=== PATIENT | female | born 1935 | race Caucasian/White ===

== ENCOUNTER 2016-12-09 09:38 | Day surgery (SDC) | payer MEDICARE, OTHER ==
[~2016-12-09] VITALS: Ht 160 cm; Wt 72.7 kg
[2016-12-09 10:06] VITALS: BP 165/77
[2016-12-09] MEDS ORDERED: DABI75CA3 PO (10:30)
[2016-12-09] MEDS ORDERED: ROPI8TAB3 PO (10:30)
[2016-12-09] MEDS ORDERED: POTA10CA PO (10:30)
[2016-12-09] MEDS ORDERED: MAGN400T36 PO (10:30)
[2016-12-09] MEDS ORDERED: AMLO5TAB2 PO (10:30)
[2016-12-09] MEDS ORDERED: CHOL20003 PO (10:30)
[2016-12-09] MEDS ORDERED: CLON0.2T PO (10:30)
[2016-12-09] MEDS ORDERED: FURO20TA3 PO (10:30)
[2016-12-09] MEDS ORDERED: LISI-170 PO (10:30)
[2016-12-09] MEDS ORDERED: FLEC100T PO (10:30)
[2016-12-09] MEDS ORDERED: HYDR-3144 PO (10:30)
[2016-12-09] MEDS ORDERED: SODIUM CHLORIDE 0.9% 1,000 ML IV SCH (10:30)
[2016-12-09] MEDS ORDERED: FLUO40CA2 PO (10:30)
[2016-12-09] MEDS ORDERED: OMEP-110 PO (10:30)
[2016-12-09] MEDS ORDERED: ALLO100T30 PO (10:30)
[2016-12-09] MEDS ORDERED: PROPOFOL 10 MG/ML, 20ML ONE (11:26)
== END 2016-12-09 12:56 | disposition home or self-care (01) ==
LOC: CACL 09:38
PROVIDERS: ATTEND Internal Medicine Cardiovascular Disease
DX: I34.0 Nonrheumatic mitral (valve) insufficiency (principal); I36.1 Nonrheumatic tricuspid (valve) insufficiency; I35.1 Nonrheumatic aortic (valve) insufficiency; I48.0 Paroxysmal atrial fibrillation; E11.22 Type 2 diabetes mellitus with diabetic chronic kidney disease; I12.9 Hypertensive chronic kidney disease with stage 1 through stage 4 chronic kidney disease, or unspecified chronic kidney disease; N18.4 Chronic kidney disease, stage 4 (severe); E78.5 Hyperlipidemia, unspecified; G47.33 Obstructive sleep apnea (adult) (pediatric); I27.2 Other secondary pulmonary hypertension; E78.00 Pure hypercholesterolemia, unspecified; Z82.49 Family history of ischemic heart disease and other diseases of the circulatory system
CPT/HCPCS: 93312; 93321; 93325; J2704

== ENCOUNTER 2017-04-18 08:50 | Day surgery (SDC) | payer MEDICARE ==
[~2017-04-18] VITALS: Ht 152.4 cm; Wt 72.7 kg
[~2017-04-18 08:50] MED LIST: ALLO100T30 PO; AMLO5TAB2 PO; CHOL2000 PO; CLON0.2T PO; DABI75CA3 PO; FLEC100T PO; FLUO40CA2 PO; FURO20TA3 PO; HYDR-3245 PO; LISI-170 PO; MAGN400T36 PO; OMEP-110 PO; POTA10CA PO; ROPI8TAB3 PO
[2017-04-18 09:49] VITALS: BP 141/59
[2017-04-18] MEDS ORDERED: LIDOCAINE/PF 1%-EPI 1:200K, 30 ML ONE (09:49)
== END 2017-04-18 11:23 | disposition home or self-care (01) ==
LOC: CACL 08:50
PROVIDERS: ATTEND Internal Medicine Cardiovascular Disease
DX: Z45.09 Encounter for adjustment and management of other cardiac device (principal); Z86.73 Personal history of transient ischemic attack (TIA), and cerebral infarction without residual deficits; I48.0 Paroxysmal atrial fibrillation; I10 Essential (primary) hypertension; E11.9 Type 2 diabetes mellitus without complications; Z88.0 Allergy status to penicillin; E78.00 Pure hypercholesterolemia, unspecified; Z79.01 Long term (current) use of anticoagulants
CPT/HCPCS: 33284; C1764; J3490